=== PATIENT | female | born 1975 | race American Indian/Alaskan Native ===

== ENCOUNTER 2020-01-25 12:45 | Emergency (ER) | payer BC, MEDICAID, OTHER ==
[2020-01-25] MEDS ORDERED: Sodium Chloride 0.9% 10 ML Syringe FLUSH PRN (12:49)
[2020-01-25] MEDS ORDERED: Ondansetron 4 MG/2 ML SDV IVPUSH ONE (12:50)
[2020-01-25] MEDS ORDERED: Sodium Chloride 0.9% 1,000 ML IV ONE ×2 (12:50→14:17)
[2020-01-25] MEDS ORDERED: Meclizine 25 MG Tab PO ONE (12:50)
--- NOTE | 2020-01-25 13:39 | EDM.PDOC ---
ED HPI GENERAL MEDICAL PROBLEM - General Chief Complaint: Drug or Alcohol Abuse Stated Complaint: vomiting,headache Time Seen by Provider: 01/25/20 12:48 Source of Information: Reports: Patient History Limitations: Reports: No Limitations - History of Present Illness INITIAL COMMENTS - FREE TEXT/NARRATIVE: Patient comes to ER complaining of not feeling well after drinking all night to 5am. History of ETOH abuse/chronic alcoholism. Is trying to work on a treatment program per self report but has been running into problems secondary to wait lists and Covid 19 delays. Has headache/feels dizzy/stomach upset/nausea/emesis. Nonbloody. Similar episode a few years ago. Denies withdrawal complaints at this time. Says she wants to stop and will continue to work on a treatment solution. Headache Pain Score (Numeric/FACES): 8 - Related Data Allergies Allergy/AdvReac Type Severity Reaction Status Date / Time ciprofloxacin [From Cipro] Allergy Other Verified 01/25/20 13:58 Penicillins Allergy Rash Verified 01/25/20 13:58 Home Meds: Home Meds Prazosin HCl [Prazosin] 3 mg PO BEDTIME 12/14/16 [History] atorvaSTATin [Lipitor] 10 mg PO BEDTIME 12/14/16 [History] Insulin Glarg,Human.Rec.Analog [LantUS Solostar] 20 units SUBCUT DAILY #0 12/16/16 [Rx] Insulin Aspart [NovoLOG] 6 units SUBCUT TID 12/20/17 [History] buPROPion [Wellbutrin] 300 mg PO DAILY 07/30/19 [History] Pregabalin [Lyrica] 50 mg PO BID 01/07/20 [History] Magnesium Glycinate [Magnesium Bisglycinate Chelate] 500 mg MC BID #1 powder 01/25/20 [Rx] cloNIDine [Catapres] 0.2 mg PO DAILY PRN 01/25/20 [History] Past Medical History Cardiovascular History: Reports: High Cholesterol, Hypertension Gastrointestinal History: Reports: GERD Neurological History: Reports: Neuropathy, Diabetic Other Neuro History: Neuropathy pain to legs bilaterally. Psychiatric History: Reports: Addiction, Anxiety, Depression, Suicide Attempt Endocrine/Metabolic History: Reports: Diabetes, Type I Dermatologic History: Reports: Other (See Below) Other Dermatologic History: vein stripping L leg - Past Surgical History GI Surgical History: Reports: Appendectomy Female Surgical History: Reports: Section Other Female Surgeries/Procedures: X6 Social & Family History - Family History Family Medical History: No Pertinent Family History - Caffeine Use Caffeine Use: Reports: Coffee ED ROS GENERAL - Review of Systems Review Of Systems: See Below Constitutional: Reports: Malaise, Decreased Appetite. Denies: Fever, Diaphoresis HEENT: Reports: No Symptoms Respiratory: Reports: No Symptoms Cardiovascular: Reports: No Symptoms GI/Abdominal: Reports: Nausea, Vomiting, Other (epigastric burning/discomfort). Denies: Constipation, Diarrhea : Reports: No Symptoms Musculoskeletal: Reports: No Symptoms Skin: Reports: No Symptoms Neurological: Reports: Dizziness, Headache. Denies: Numbness, Syncope, Trouble Speaking, Change in Speech Psychiatric: Reports: Cravings. Denies: Hallucinations, Homicidal Ideation, Suicidal Ideation Hematologic/Lymphatic: Reports: No Symptoms ED EXAM, GENERAL - Physical Exam Exam: See Below Exam Limited By: No Limitations General Appearance: Alert, WD/WN, No Apparent Distress Eye Exam: Bilateral Eye: EOMI, PERRL Ears: Hearing Grossly Normal Nose: No: Nasal Deformity, Nasal Swelling, Nasal Drainage Throat/Mouth: Normal Lips, Normal Voice, No Airway Compromise Head: Atraumatic, Normocephalic Neck: Normal Inspection, Supple, Non-Tender, Full Range of Motion Respiratory/Chest: No Respiratory Distress, Lungs Clear, Normal Breath Sounds, No Accessory Muscle Use Cardiovascular: Regular Rate, Rhythm, No Murmur GI/Abdominal: Normal Bowel Sounds, Soft, Tender (some tenderness noted with palpation of epigastric area. ). No: Guarding, Rigid, Rebound (Female) Exam: Deferred Rectal (Female) Exam: Deferred Back Exam: No: CVA Tenderness (L), CVA Tenderness (R), Muscle Spasm Extremities: Non-Tender, Normal Capillary Refill Neurological: Alert, Oriented, CN II-XII Intact, Normal Cognition, Normal Gait, No Motor/Sensory Deficits Psychiatric: Normal Affect, Normal Mood Skin Exam: Warm, Dry, Intact, Normal Color Course - Vital Signs Last Recorded V/S: Last Vital Signs Temp 37.3 C 01/25/20 12:49 Pulse 84 01/25/20 14:51 Resp 19 01/25/20 14:51 BP 144/84 H 01/25/20 14:51 Pulse Ox 99 01/25/20 14:51 - Orders/Labs/Meds Orders: Active Orders 24 hr Category Date Time Status CULTURE URINE [RM] Routine Lab 01/25/20 13:44 Received Sodium Chloride 0.9% [Saline Flush] Med 01/25/20 12:49 Active 10 ml FLUSH ASDIRECTED PRN Saline Lock Insert [OM.PC] Routine Oth 01/25/20 12:49 Ordered Medication Orders Sodium Chloride (Saline Flush) 10 ml FLUSH ASDIRECTED PRN PRN Reason: Keep Vein Open Last Admin: 01/25/20 13:38 Dose: 10 ml Documented by: LINDA Labs: Laboratory Tests 01/25/20 01/25/20 01/25/20 Range/Units 13:34 13:34 13:44 WBC 7.3 (4.0-10.2) K/uL RBC 4.54 (3.77-5.09) M/uL Hgb 13.8 (11.7-15.5) g/dL Hct 41.0 (34.0-46.0) % MCV 90.3 (84.0-98.0) fL MCH 30.4 (28.2-33.3) pg MCHC 33.7 (31.7-36.0) g/dL RDW 14.1 (11.2-14.1) % Plt Count 273 (150-350) K/uL Neut % (Auto) 75.4 (45.0-80.0) % Lymph % (Auto) 16.3 (10.0-50.0) % [place] % (Auto) 6.8 (2.0-14.0) % Eos % (Auto) 0.7 (0.0-5.0) % Baso % (Auto) 0.8 (0.0-2.0) % Neut # (Auto) 5.47 (1.40-7.00) K/uL Lymph # (Auto) 1.18 (0.50-3.50) K/uL [place] # (Auto) 0.49 (0.00-1.00) K/uL Eos # (Auto) 0.05 (0.00-0.50) K/uL Baso # (Auto) 0.06 (0.00-0.20) K/uL Sodium Cancelled Potassium Cancelled Chloride Cancelled Carbon Dioxide Cancelled BUN Cancelled Creatinine Cancelled Est Cr Clr Drug Dosing Cancelled Estimated GFR (MDRD) Cancelled Glucose Cancelled Calcium Cancelled Magnesium (1.8-2.4) mg/dL Total Bilirubin (0.2-1.0) mg/dL AST (15-37) U/L ALT (12-78) U/L Alkaline Phosphatase (46-116) IU/L Total Protein (6.4-8.2) g/dL Albumin (3.4-5.0) g/dL Specimen Type Urinblad Urine Color Yellow Urine Appearance Slightly cloudy Urine pH 7.5 (5.0-9.0) Ur Specific [place] 1.020 (1.005-1.030) Urine Protein 30 H (NEGATIVE) mg/dL Urine Glucose (UA) 500 H (NEGATIVE) mg/dL Urine Ketones Trace H (NEGATIVE) mg/dL Urine Occult Blood Negative (NEGATIVE) Urine Nitrite Positive H (NEGATIVE) Urine Bilirubin Negative (NEGATIVE) Urine Urobilinogen 0.2 (0.2-1.0) E.U./dL Ur Leukocyte Esterase Negative (NEGATIVE) Urine RBC Not seen /HPF Urine WBC 10-20 H /HPF Ur Epithelial Cells Few /LPF Urine Bacteria Many H (NONE TO FEW) /HPF Urine Opiates Screen (NEGATIVE) Ur Buprenorphine Scrn (NEGATIVE) Ur Oxycodone Screen (NEGATIVE) Ur EDDP (Meth Metab) (NEGATIVE) Ur Barbiturates Screen (NEGATIVE) Ur Tricyclics Screen (NEGATIVE) Ur Amphetamine Screen (NEGATIVE) U Methamphetamines Scrn (NEGATIVE) Urine MDMA Screen (NEGATIVE) U Benzodiazepines Scrn (NEGATIVE) U Cocaine Metab Screen (NEGATIVE) U Marijuana (THC) Screen (NEGATIVE) Ethyl Alcohol Cancelled 01/25/20 01/25/20 Range/Units 13:44 14:30 WBC (4.0-10.2) K/uL RBC (3.77-5.09) M/uL Hgb (11.7-15.5) g/dL Hct (34.0-46.0) % MCV (84.0-98.0) fL MCH (28.2-33.3) pg MCHC (31.7-36.0) g/dL RDW (11.2-14.1) % Plt Count (150-350) K/uL Neut % (Auto) (45.0-80.0) % Lymph % (Auto) (10.0-50.0) % [place] % (Auto) (2.0-14.0) % Eos % (Auto) (0.0-5.0) % Baso % (Auto) (0.0-2.0) % Neut # (Auto) (1.40-7.00) K/uL Lymph # (Auto) (0.50-3.50) K/uL [place] # (Auto) (0.00-1.00) K/uL Eos # (Auto) (0.00-0.50) K/uL Baso # (Auto) (0.00-0.20) K/uL Sodium 138 Potassium 5.1 Chloride 104 Carbon Dioxide 22.2 BUN 14 Creatinine 0.69 Est Cr Clr Drug Dosing 97.40 Estimated GFR (MDRD) > 60 Glucose 217 H Calcium 8.2 L Magnesium 1.6 L (1.8-2.4) mg/dL Total Bilirubin 0.3 (0.2-1.0) mg/dL AST 41 H (15-37) U/L ALT 38 (12-78) U/L Alkaline Phosphatase 73 (46-116) IU/L Total Protein 7.5 (6.4-8.2) g/dL Albumin 3.6 (3.4-5.0) g/dL Specimen Type Urine Color Urine Appearance Urine pH (5.0-9.0) Ur Specific [place] (1.005-1.030) Urine Protein (NEGATIVE) mg/dL Urine Glucose (UA) (NEGATIVE) mg/dL Urine Ketones (NEGATIVE) mg/dL Urine Occult Blood (NEGATIVE) Urine Nitrite (NEGATIVE) Urine Bilirubin (NEGATIVE) Urine Urobilinogen (0.2-1.0) E.U./dL Ur Leukocyte Esterase (NEGATIVE) Urine RBC /HPF Urine WBC /HPF Ur Epithelial Cells /LPF Urine Bacteria (NONE TO FEW) /HPF Urine Opiates Screen Negative (NEGATIVE) Ur Buprenorphine Scrn Negative (NEGATIVE) Ur Oxycodone Screen Negative (NEGATIVE) Ur EDDP (Meth Metab) Negative (NEGATIVE) Ur Barbiturates Screen Negative (NEGATIVE) Ur Tricyclics Screen Negative (NEGATIVE) Ur Amphetamine Screen Negative (NEGATIVE) U Methamphetamines Scrn Negative (NEGATIVE) Urine MDMA Screen Negative (NEGATIVE) U Benzodiazepines Scrn Negative (NEGATIVE) U Cocaine Metab Screen Negative (NEGATIVE) U Marijuana (THC) Screen Positive H (NEGATIVE) Ethyl Alcohol 0.001 Meds: Medications Generic Name Dose Route Start Last Admin Trade Name Freq PRN Reason Stop Dose Admin Sodium Chloride 10 ml 01/25/20 12:49 01/25/20 13:38 Saline Flush FLUSH 10 ml ASDIRECTED PRN Administration Keep Vein Open Discontinued Medications Generic Name Dose Route Start Last Admin Trade Name Freq PRN Reason Stop Dose Admin Sodium Chloride 1,000 mls @ 999 mls/hr 01/25/20 12:50 01/25/20 13:38 Normal Saline IV 01/25/20 13:50 999 mls/hr .BOLUS ONE Administration Sodium Chloride 1,000 mls @ 999 mls/hr 01/25/20 14:17 01/25/20 14:48 Normal Saline IV 01/25/20 15:17 999 mls/hr .BOLUS ONE Administration Lorazepam 1 mg 01/25/20 14:16 01/25/20 14:35 Ativan IVPUSH 01/25/20 14:17 1 mg ONETIME ONE Administration Meclizine HCl 25 mg 01/25/20 12:50 01/25/20 13:38 Antivert PO 01/25/20 12:51 25 mg ONETIME ONE Administration Ondansetron HCl 4 mg 01/25/20 12:50 01/25/20 13:38 Zofran IVPUSH 01/25/20 12:51 4 mg ONETIME ONE Administration Pantoprazole Sodium 40 mg 01/25/20 15:54 Protonix Iv IVPUSH 01/25/20 15:55 ONETIME ONE - Re-Assessments/Exams Free Text/Narrative Re-Assessment/Exam: 01/25/20 13:39 Baseline labs ordered. Lab only able to draw small amount of blood. IV fluid and Zofran ordered. Time spent visiting with patient regarding her ETOH use and plans for follow up with [facility] resources and her PCP in regards to formulating treatment plan options. Free Text/Narrative Re-Assessment/Exam: 01/25/20 14:17 blood specimen hemolyzed and potassium noted to be elevated. Lab will attempt redraw. Mild increased WBCs in UA. Culture requested. 01/25/20 16:04 Patient reported to us that she is in middle of course of therapy for UTI. Is to finish treatment and get urine rechecked at her local clinic next week to make certain infection cleared completely. Was to receive IV Protonix and Magnesium prior to discharge but IV site removed by nursing after IV fluids finished infusing. Patient difficult for IV sites/6 attempts required to get previous site. No additional attempts made in order to infuse Protonix/Mg. Pt to start oral Mag supplementation and follow up for level recheck at her clinic in 2 weeks. New blood specimen showed K level of 5.1/upper limits of normal. It is anticipated that patient's IV fluids received today will dilute that down to more appropriate level. Precautions and plan reviewed with patient prior to discharge and she is in agreement with plan. States that she is feeling much better. Departure - Departure Time of Disposition: 16:15 Disposition: Home, Self-Care 01 Condition: Good Clinical Impression: Alcohol abuse, Hypomagnesemia Alcoholic gastritis Qualifiers: Chronicity: acute Gastritis bleeding: without bleeding Qualified Code(s): K29.20 - Alcoholic gastritis without bleeding - Discharge Information *PRESCRIPTION DRUG MONITORING PROGRAM REVIEWED*: Not Applicable *COPY OF PRESCRIPTION DRUG MONITORING REPORT IN PATIENT DEBI: Not Applicable Prescriptions: Magnesium Glycinate [Magnesium Bisglycinate Chelate] 500 mg MC BID #1 powder Instructions: Hypomagnesemia, Finding Treatment for Addiction Referrals: PCP,Unknown [Primary Care Provider] - Forms: ED Department Discharge Additional Instructions: Continue to work with [facility] and your clinic to arrange for treatment options for your alcohol use. Take Magnesium twice daily for two weeks--look for Mag Oxide or preferably Mag Glycinate 400-500mg tabs. Then get mag level rechecked to figure out dosing changes. Have your Mag levels rechecked monthly until you figure out what dose keeps the magnesium in good range. Get your urine rechecked next week to make certain the UTI cleared on current antibiotics. Get your potassium level rechecked too as it was borderline high today before your IV fluids. Follow up otherwise as needed for any new or worsening concerns. Sepsis Event Note (ED) - Evaluation Sepsis Screening Result: No Definite Risk - Focused Exam Vital Signs: Vital Signs Temp Pulse Resp BP Pulse Ox 01/25/20 14:51 84 19 144/84 H 99 01/25/20 12:49 37.3 C 80 18 147/86 H 99 - My Orders Last 24 Hours: My Active Orders 01/25/20 12:49 Sodium Chloride 0.9% [Saline Flush] 10 ml FLUSH ASDIRECTED PRN Saline Lock Insert [OM.PC] Routine 01/25/20 13:44 CULTURE URINE [RM] Routine - Assessment/Plan Last 24 Hours: My Active Orders 01/25/20 12:49 Sodium Chloride 0.9% [Saline Flush] 10 ml FLUSH ASDIRECTED PRN Saline Lock Insert [OM.PC] Routine 01/25/20 13:44 CULTURE URINE [RM] Routine
[2020-01-25 14:02] LABS: BARBITURATE SCREEN,URINE NEGATIVE (NEGATIVE); BENZODIAZEPINES SCREEN,URINE NEGATIVE (NEGATIVE); EDDP,URINE SCREEN NEGATIVE (NEGATIVE); TCA SCREEN,URINE NEGATIVE (NEGATIVE); THC SCREEN,URINE 50 NG/ML POSITIVE (NEGATIVE)
[2020-01-25] MEDS ORDERED: LORazepam 2 MG/ML SDV IVPUSH ONE (14:16)
[2020-01-25 14:48] LABS: CHLORIDE,CL 104 mmol/L (98-107)
[2020-01-25 14:54] LABS: SODIUM,NA 138 mmol/L (136-145)
[2020-01-25] MEDS ORDERED: Pantoprazole 40 MG Vial IVPUSH ONE (15:54)
== END 2020-01-25 15:58 | disposition home or self-care (01) ==
LOC: LL.ED 12:45
DX: K29.20 Alcoholic gastritis without bleeding (principal); E83.42 Hypomagnesemia; E78.00 Pure hypercholesterolemia, unspecified; I10 Essential (primary) hypertension; E10.40 Type 1 diabetes mellitus with diabetic neuropathy, unspecified; F32.9 Major depressive disorder, single episode, unspecified; Z88.1 Allergy status to other antibiotic agents; Z88.0 Allergy status to penicillin; Z79.899 Other long term (current) drug therapy
CPT/HCPCS: 36415; 80053; 80305; 80307; 81001; 83735; 85025; 87086; 87088; 87186; 96374; 96375; 99284; A9270; J2060; J2405; J7030; 99283